=== PATIENT | male | born 1950 | race Caucasian/White ===

== ENCOUNTER 2016-08-25 23:49 | Emergency (ER) | payer OTHER, MEDICARE ==
[~2016-08-25] VITALS: Ht 172.7 cm; Wt 129.3 kg
[~2016-08-25 23:49] MED LIST: ALBUTEROL0.09 MG/A1 INH; ATENOLOL100 MG PO; BACTRIM DS TAB1 EACH PO; BACTROBAN22 GM TOP; CEPHALEXIN500 MG PO; COZAAR 50MG TAB50 MG PO; CRESTOR 10MG10 MG PO; ECOTRIN81 MG PO; KEFLEX500 M1 PO; METFORMIN HCL500 MG PO; MINOCYCLINE HC100 M1 PO; MIRALAX119 GM PO; PREDNISONE10 MG PO; PREDNISONE50 MG PO
--- NOTE | 2016-08-26 00:07 | ED DYSPNEA/ASTHMA COMPLAINT ---
History of Present Illness General Chief Complaint: Dyspnea (COPD, CHF, Other) Stated Complaint: "PER PT CHEST TIGHTNESS, DIFF BREATHING" Source: patient, old records Exam Limitations: no limitations Vital Signs & Intake/Output Vital Signs & Intake/Output Vital Signs Date Time Temp Pulse Resp B/P B/P Pulse O2 O2 Flow FiO2 Mean Ox Delivery Rate 08/26 118 97.8 72 18 156/92 98 Room Air 08/26 001 97.7 57 16 140/80 96 Allergies Coded Allergies: venom-wasp (WASP VENOM) (ALLERGIC TO WHITE FACED WASPS 08/26/16) Reconcile Medications Aspirin (Ecotrin) 81 MG ECT 1 TAB PO DAILY HEART (Reported) Atenolol 100 MG TABLET 1 TAB PO AT BEDTIME BP (Reported) Losartan (Cozaar) 50 MG TAB 1 TAB PO DAILY HEART (Reported) Metformin Hydrochloride (Metformin HCl) 500 MG TAB 1 TAB PO BID DIABETES ( Reported) Minocycline HCl 100 MG CAPSULE 1 CAP PO BID ANTIBIOTIC, INFECTION (Reported) Rosuvastatin Calcium (Crestor) 10 MG TABLET 1 TAB PO DAILY CHOLESTEROL ( Reported) Triage Note: TRIAGE: PATIENT TO ER FROM HOME REPORTING +SOB AND SNEEZING SINCE WEDNESDAY NIGHT, COUGHING TONIGHT, "COUGHING UP A LITTLE BIT OF PHELEM." PATIENT REPORTING CHEST TIGHTNESS 4/10 TONIGHT. -N/V/D. Triage Nurses Notes Reviewed? yes HPI: Patient started with a runny nose and sneezing on Wednesday. The seizing stopped but he then developed a cough yesterday. The cough is worsening. He is now getting some chest tightness with coughing. There is no dyspnea on exertion or orthopnea. There are no palpitations. Positive chills and subjective fevers however when he takes his temperature is 97.6. There is no nausea or vomiting. There is no anorexia. Past History Travel History Traveled to [place] past 21 day No Medical History Any Pertinent Medical History? 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 No Review of Systems Review of Systems Constitutional: Reports: see HPI, chills. Respiratory: Reports: see HPI, cough, short of breath. Cardiovascular: Reports: see HPI, chest pain. GI: Reports: no symptoms. Genitourinary: Reports: no symptoms. Musculoskeletal: Reports: no symptoms. Neurological/Psychological: Reports: no symptoms. Immunologic/Allergic: Reports: no symptoms. Physical Exam Physical Exam General Appearance: well developed/nourished, alert, awake, mild distress Head: atraumatic, normal appearance Eyes: Bilateral: PERRL, EOMI. Ears, Nose, Throat: normal pharynx, normal ENT inspection Neck: normal inspection, supple, full range of motion, NO JVD Respiratory: normal breath sounds, chest non-tender, no respiratory distress, lungs clear Cardiovascular: regular rate/rhythm, normal peripheral pulses Gastrointestinal: normal bowel sounds, soft, non-tender, no organomegaly Extremities: normal inspection, normal capillary refill, normal range of motion, no edema Neurologic/Psych: no motor/sensory deficits, awake, alert, oriented x 3, normal gait, normal mood/affect Skin: intact, normal color, warm/dry Lymphatic: no anterior cervical ulises Core Measures ACS in differential dx? No Severe Sepsis Present: No Septic Shock Present: No Progress Differential Diagnosis: asthma, AMI, bronchitis, CHF, COPD, pulmonary embolism, pneumonia, pneumothorax Plan of Care: Orders Procedure Date/time Status EKG 08/26 0000 Active Diagnostic Imaging: Viewed by Me: Radiology Read. Discussed w/RAD: Radiology Read. CXR Impression: PATIENT: FREDY HENRIQUEZ PRESENT AGE: 66 PATIENT ACCOUNT NO: [id number] : 49 LOCATION: [facility] ORDERING PHYSICIAN: TESS LOMBARDO MD SERVICE DATE: 08/26/16 EXAM TYPE: RAD - XRY-CHEST XRAY, PA AND LATERAL EXAMINATION: XR CHEST CLINICAL INFORMATION: Cough COMPARISON: 07/10/2015 TECHNIQUE: 2 views of the chest were obtained. FINDINGS: Lung volumes are symmetric. No focal consolidation is seen. No evidence of pneumothorax, significant pleural effusion, or pulmonary edema. The cardiomediastinal contour is unremarkable. No acute osseous findings are seen. IMPRESSION: No focal consolidation identified. DICTATED BY: SHAKIR SOMMER MD DATE/TIME DICTATED:08/26/16105 AGENT BASED MODELER:[place] DATE/TIME TRANSCRIBED:08/26/16105 CONFIDENTIAL, DO NOT COPY WITHOUT APPROPRIATE AUTHORIZATION. <Electronically signed in Other Vendor System> SIGNED BY: SHAKIR SOMMER MD 08/26/16 011 Initial ED EKG: NSR, no ST T wave changes Departure Departure Disposition: HOME OR SELF CARE Condition: Stable Clinical Impression Primary Impression: Bronchitis Referrals: WALT AHUMADA,JOSE Reed (PCP/Family) Additional Instructions: Drink plenty of fluids. Take Tessalon as prescribed and as needed. If her symptoms worsen then start the antibiotic. Return for any concerns. Departure Forms: Customer Survey General Discharge Information Prescriptions: Current Visit Scripts Benzonatate (Tessalon Perle) 1 CAP PO TID PRN COUGH #30 CAP Azithromycin (Zithromax) 1 DP PO AD #6 TAB 2 the first day followed by 1 for days 2-5 Critical Care Note Critical Care Note Critical Care Time: non-applicable
--- NOTE | 2016-08-26 01:11 | RADIOLOGY REPORT ---
EXAMINATION: XR CHEST CLINICAL INFORMATION: Cough COMPARISON: 07/10/2015 TECHNIQUE: 2 views of the chest were obtained. FINDINGS: Lung volumes are symmetric. No focal consolidation is seen. No evidence of pneumothorax, significant pleural effusion, or pulmonary edema. The cardiomediastinal contour is unremarkable. No acute osseous findings are seen. IMPRESSION: No focal consolidation identified.
[2016-08-26 01:19] VITALS: BP 156/92
[2016-08-26] MEDS ORDERED: ZITHROMAX250 M2 PO (01:20)
[2016-08-26] MEDS ORDERED: TESSALON PERLE100 M1 PO (01:20)
== END 2016-08-26 01:23 ==
LOC: ERH 23:49
DX: J40 Bronchitis, not specified as acute or chronic (principal); R07.89 Other chest pain
CPT/HCPCS: 93005; 93010

== ENCOUNTER 2017-06-14 10:29 | Emergency (ER) | payer OTHER, MEDICARE ==
[~2017-06-14] VITALS: Ht 172.7 cm; Wt 128.4 kg
[~2017-06-14 10:29] MED LIST changes: +ALPRAZOLAM1 M2 PO; +ATENOLOL100 M1 PO; +CRESTOR10 M1 PO; +FLOMAX0.4 M1 PO; +KETOROLAC TROME10 M1 PO; +LOSARTAN POTASS50 M1 PO; +METFORMIN HCL500 M4 PO; +MIRTAZAPINE15 M2 PO; +PERCOCET 5-3251 EACH PO; +TESSALON PERLE100 M1 PO; +ZITHROMAX250 M2 PO
[2017-06-14 10:48] VITALS: BP 189/92
== END 2017-06-14 11:15 | disposition admitted as inpatient to this hospital (09) ==
LOC: ERH 10:29
DX: R07.9 Chest pain, unspecified (principal)
CPT/HCPCS: 93005; 93010; 99281

== ENCOUNTER 2017-11-03 13:37 | Emergency (ER) | payer OTHER ==
[~2017-11-03] VITALS: Ht 170.2 cm; Wt 129.3 kg
[~2017-11-03 13:37] MED LIST changes: +ASPIRIN EC81 M1 PO; +COLACE100 M1 PO; +HYDROCHLOROTH12.5 M2 PO; +HYDROCHLOROTH12.5 M3 PO; +ROSUVASTATIN CAL5 MG PO
--- NOTE | 2017-11-03 14:27 | ED GENERAL ADULT ---
History of Present Illness General Chief Complaint: Animal/Insect Bite Stated Complaint: BIBA BEE STING Source: patient, EMS Exam Limitations: no limitations Vital Signs & Intake/Output Vital Signs & Intake/Output Vital Signs Date Time Temp Pulse Resp B/P B/P Pulse O2 O2 Flow FiO2 Mean Ox Delivery Rate 11/03 1347 98.3 84 18 135/60 97 Room Air Allergies Coded Allergies: venom-wasp (WASP VENOM) (ALLERGIC TO WHITE FACED WASPS HIVES DYSPNEA 09/05/17) Uncoded Allergies: BP MED (Intermediate, PT DOES NOT KNOW WHAT MED WAS TACHYCARDIC, DIAPHORETIC ) Reconcile Medications Alprazolam 1 MG TABLET 1 TAB PO BIDP PRN ANXIETY (Reported) Aspirin (Ecotrin*) 81 MG TABLET.DR 1 TAB PO DAILY CHOLESTEROL (Reported) Atenolol 100 MG TABLET 1 TAB PO DAILY HTN (Reported) Docusate Sodium (Colace) 100 MG CAPSULE 1 CAP PO QPM STOOL SOFTENER (Reported ) Hydrochlorothiazide 12.5 MG TABLET 1 TAB PO DAILY HTN Losartan Potassium 50 MG TABLET 1 TAB PO DAILY HTN (Reported) Metformin HCl (Metformin HCl ER) 500 MG TAB.ER.24H 2 TAB PO BID DM (Reported) Mirtazapine 15 MG TABLET 0.25 TAB PO QPM SLEEP (Reported) Polyethylene Glycol 3350 (Miralax) 17 GRAM/DOSE POWDER 17 GM PO DAILY constipation mix with water, juice, soda, coffee or tea Use daily until stools soft and regular Rosuvastatin Calcium (Unknown Strength) TABLET (Unknown Dose) PO DAILY SUPPLEMENT (Reported) Triage Note: PT BIBA FROM HOME S/P BEING STUNG BY ?BEE/WASP X 2. 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 PER EMS UPON ARRIVAL PT HAD NO RESP COMPLAINTS, SOME HIVES. GIVEN 0.3 EPI SC VIA EPIPEN TO LEFT LEG. 20 MG IV PEPCID AND 50 MG IV BENADRYL GIVEN. PT PLACED ON CM NSR NOTED. NO RESP DISTRESS NOTED. Triage Nurses Notes Reviewed? yes HPI: This is a 59-year-old male with history of obesity, hypertension, hyperlipidemia , [id number] diabetes, prior anaphylactic bee sting reaction, presenting emergency department with yellowjacket sting. Patient states he was opening his mailbox and was stung 2 by a yellow jacket, to the right forearm and left wrist. He developed hives, called EMS. Upon their arrival, they found him to be mildly hypotensive with some urticaria to the anterior abdomen. He was administered 0.3 mg of epinephrine IM, in addition to 20 mg of Pepcid and 50 mg of Benadryl. Upon arrival, the patient is asymptomatic and states he has no acute complaints. He is placed on desk monitor, assessed immediately. Past History Travel History Traveled to [place] past 21 day No Medical History Any Pertinent Medical History? 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 No Review of Systems Review of Systems Constitutional: Reports: no symptoms. EENTM: Reports: no symptoms. Respiratory: Reports: no symptoms. Cardiovascular: Reports: no symptoms. GI: Reports: no symptoms. Genitourinary: Reports: no symptoms. Musculoskeletal: Reports: no symptoms. Skin: Reports: see HPI. Neurological/Psychological: Reports: no symptoms. Hematologic/Endocrine: Reports: no symptoms. Physical Exam Physical Exam General Appearance: well developed/nourished, no apparent distress, alert, awake , obese Head: atraumatic, normal appearance Eyes: Bilateral: normal appearance. Ears, Nose, Throat: normal pharynx, normal ENT inspection, hearing grossly normal Neck: normal inspection, supple, full range of motion Respiratory: normal breath sounds, chest non-tender, no respiratory distress, lungs clear Cardiovascular: regular rate/rhythm, edema Gastrointestinal: normal bowel sounds, soft, non-tender Rectal: deferred Back: normal inspection, normal range of motion Extremities: normal inspection, normal capillary refill, normal range of motion Neurologic/Psych: no motor/sensory deficits, awake, alert, oriented x 3 Skin: intact, normal color, warm/dry Comments: Obese male, no acute distress. No rash noted. Lungs clear, no acute distress. No uvular edema or airway changes. Core Measures ACS in differential dx? No CVA/TIA Diagnosis: No Sepsis Present: No Sepsis Focused Exam Completed? No Progress Differential Diagnoses I considered the following diagnoses in my evaluation of the patient: Could be had a flat reaction secondary to wasp sting. Low suspicion for acute infectious process. Doubt any acute cardiac response to the epinephrine. Plan of Care: Orders Procedure Date/time Status Regular Diet 11/04 B Active Plan for administration of IV steroids, close monitoring for several hours, and reassessment. Patient very well-appearing on reassessment, at 3 hour lance, patient continues to have no symptoms, is hungry and requests meal. Patient eats without difficulty, will be discharged home. Risks and benefits of starting outpatient steroids for a few days are discussed the patient. Given that he has diabetes and the literature has not born out a definitive advantage to starting short course of steroids, will hold off on this treatment. Patient is prescribed however a EpiPen autoinjector and given specific instructions on how to use it. In addition to this he is given return precautions and outpatient follow-up instructions. Initial ED EKG: none Departure Departure Time of Disposition: 1633 Disposition: HOME OR SELF CARE Condition: Stable Clinical Impression Primary Impression: Allergic reaction to insect sting Referrals: Unknown Additional Instructions: Please call [phone] and return to the emergency department immediately if he develop any worsening rash, shortness of breath, severe nausea or diarrhea, swelling in your mouth or throat, or any other concerning symptoms. Please use the EpiPen as we discussed, injecting into the lateral thigh for 10 seconds if you are exposed to allergen and have an allergic reaction. Departure Forms: Customer Survey General Discharge Information Prescriptions: Current Visit Scripts Epinephrine (Epipen 2-Salty) 1 DOSE IM EVERY 5 MIN #1 2 Ref 2 Critical Care Note Critical Care Note Critical Care Time: non-applicable
[2017-11-03] MEDS ORDERED: EPIPEN 2-P0.3 MG/0.3 IM (16:36)
[2017-11-03 17:05] VITALS: BP 159/75
== END 2017-11-03 17:19 ==
LOC: ERH 13:37
DX: T63.441A Toxic effect of venom of bees, accidental (unintentional), initial encounter (principal)
CPT/HCPCS: 96374; J2930